=== PATIENT | female | born 1965 | race Caucasian/White ===

== ENCOUNTER 2016-09-19 16:46 | Emergency (ER) | payer BC ==
[~2016-09-19 16:46] MED LIST: ACET500CAP PO; ADVIL PO; ULTRAM50 PO; ZYRTEC ALLGY10 MG PO
[2016-09-19 17:06] LABS: BASOPHILS 0.3 %; BASOPHILS ABSOLUTE 0.03 10/3/uL (0.0-0.16); EOSINOPHILS 0.7 %; EOSINOPHILS ABSOLUTE 0.08 10/3/uL (0.0-0.53); HEMATOCRIT 43.2 % (36.0-48.0); HEMOGLOBIN 14.8 g/dL (12.0-16.0); IMMATURE GRANULOCYTES 0.7 %; IMMATURE GRANULOCYTES ABSOLUTE 0.08 10/3/uL (0.0-0.11); LYMPHOCYTES 13.7 %; LYMPHOCYTES ABSOLUTE 1.49 10/3/uL (0.67-4.30); MANUAL DIFF NO %; MEAN CORPUS HGB CONC 34.3 g/dL (32.0-36.0); MEAN CORPUSCULAR VOLUME 90.6 fL (80-100); MEAN PLATELET VOLUME 10.2 fL (9.2-13.0); MONOCYTES 4.5 %; MONOCYTES ABSOLUTE 0.49 10/3/uL (0.21-1.20); NEUTROPHILS 80.1 %; NEUTROPHILS ABSOLUTE 8.71 10/3/uL (2.02-8.40); PLATELET COUNT 269 10/3/uL (150-400); RBC DISTRIBUTION WIDTH 12.2 % (12.0-16.0); RED CELL COUNT 4.77 10/6/uL (4.0-5.6); WHITE BLOOD CELLS 10.9 10/3/uL (4.5-10.5)
[2016-09-19 17:15] LABS: INTERNATIONAL NORMAL RATI 1.1 UNITS (-); PROTIME (NOT ORD) 13.7 SEC (12.0-14.5)
[2016-09-19 17:16] LABS: PARTIAL THROMBO TIME 27.3 SEC (22.5-37.2)
[2016-09-19 17:21] LABS: BUN (BLOOD UREA NITROGEN) 13 MG/DL (6-23); CALCIUM, SERUM 8.6 MG/DL (8.5-10.4); CHEST PAIN PROFILE TAT 0 Hrs 19 Mins; CHLORIDE, SERUM 106 MMOL/L (96-112); CO2 (CARBON DIOXIDE) 26 MMOL/L (24-34); CREATININE 0.76 MG/DL (0.55-1.02); GFR AFRICAN AMERICAN 105 ML/MIN (>=60); GFR NON AFRICAN AMERICAN 90 ML/MIN (>=60); GLUCOSE, SERUM 103 MG/DL (60-99); POTASSIUM, SERUM 3.9 MMOL/L (3.5-5.3); SODIUM, SERUM 140 MMOL/L (135-148); TROPONIN I <0.02 NG/ML (<0.05)
[2016-12-30] MEDS ORDERED: CLARIT10 PO (11:56)
[2016-12-30] MEDS ORDERED: AMB5 PO (11:57)
[2016-12-30] MEDS ORDERED: VITAMIN D31000 UNIT PO (11:57)
[2016-12-30] MEDS ORDERED: MAG OXIDE250 MG PO (11:57)
[2016-12-30] MEDS ORDERED: NASACORTAQ NAS (11:58)
[2016-12-30] MEDS ORDERED: BEN25 PO (11:58)
[2016-12-30] MEDS ORDERED: MUCINEX600 MG PO (11:58)
[2016-12-30] MEDS ORDERED: PROAIR HFA INH (12:11)
[2017-01-16] MEDS ORDERED: ALLEGRA180 PO (14:13)
[2017-01-16] MEDS ORDERED: SINGULAIR1 PO (14:13)
[2017-01-16] MEDS ORDERED: PRILOSEC OTC20 MG PO (14:15)
== END 2016-09-20 02:24 | disposition home or self-care (01) ==
LOC: ER 16:46
PROVIDERS: Emergency Medicine
DX: R00.2 Palpitations (principal); J40 Bronchitis, not specified as acute or chronic; Z88.5 Allergy status to narcotic agent; Z79.899 Other long term (current) drug therapy
CPT/HCPCS: 71020; 80048; 83735; 84484; 85025; 85610; 85730; 93005; 99285

== ENCOUNTER 2016-10-14 22:30 | Emergency (ER) | payer BC ==
[2016-10-14 17:55] LABS: BASOPHILS 0.9 %; BASOPHILS ABSOLUTE 0.06 10/3/uL (0.0-0.16); EOSINOPHILS 2.8 %; EOSINOPHILS ABSOLUTE 0.19 10/3/uL (0.0-0.53); ER CBC TAT 0 Hrs 05 Mins; HEMATOCRIT 41.8 % (36.0-48.0); HEMOGLOBIN 14.3 g/dL (12.0-16.0); IMMATURE GRANULOCYTES 0.1 %; IMMATURE GRANULOCYTES ABSOLUTE 0.01 10/3/uL (0.0-0.11); LYMPHOCYTES 29.4 %; LYMPHOCYTES ABSOLUTE 1.98 10/3/uL (0.67-4.30); MEAN CORPUS HGB CONC 34.2 g/dL (32.0-36.0); MEAN CORPUSCULAR HEMOGLOB 31.1 pg (26.0-34.0); MEAN CORPUSCULAR VOLUME 90.9 fL (80-100); MEAN PLATELET VOLUME 10.3 fL (9.2-13.0); MONOCYTES 8.9 %; NEUTROPHILS 57.9 %; PLATELET COUNT 256 10/3/uL (150-400); RBC DISTRIBUTION WIDTH 12.5 % (12.0-16.0); WHITE BLOOD CELLS 6.7 10/3/uL (4.5-10.5)
[2016-10-14 17:56] LABS: MANUAL DIFF NO %
[2016-10-14 18:04] LABS: PARTIAL THROMBO TIME 28.3 SEC (22.5-37.2); PROTIME (NOT ORD) 13.1 SEC (12.0-14.5)
[2016-10-14 18:16] LABS: BUN (BLOOD UREA NITROGEN) 15 MG/DL (6-23); CALCIUM, SERUM 9.4 MG/DL (8.5-10.4); CHEST PAIN PROFILE TAT 0 Hrs 26 Mins; CHLORIDE, SERUM 105 MMOL/L (96-112); CO2 (CARBON DIOXIDE) 28 MMOL/L (24-34); CREATININE 0.74 MG/DL (0.55-1.02); GFR AFRICAN AMERICAN 108 ML/MIN (>=60); GFR NON AFRICAN AMERICAN 93 ML/MIN (>=60); GLUCOSE, SERUM 95 MG/DL (60-99); POTASSIUM, SERUM 3.9 MMOL/L (3.5-5.3); SODIUM, SERUM 141 MMOL/L (135-148); TROPONIN I <0.02 NG/ML (<0.05)
[2016-12-30] MEDS ORDERED: CLARIT10 PO (11:56)
[2016-12-30] MEDS ORDERED: AMB5 PO (11:57)
[2016-12-30] MEDS ORDERED: MAG OXIDE250 MG PO (11:57)
[2016-12-30] MEDS ORDERED: VITAMIN D31000 UNIT PO (11:57)
[2016-12-30] MEDS ORDERED: MUCINEX600 MG PO (11:58)
[2016-12-30] MEDS ORDERED: BEN25 PO (11:58)
[2016-12-30] MEDS ORDERED: NASACORTAQ NAS (11:58)
[2016-12-30] MEDS ORDERED: PROAIR HFA INH (12:11)
[2017-01-16] MEDS ORDERED: ALLEGRA180 PO (14:13)
[2017-01-16] MEDS ORDERED: SINGULAIR1 PO (14:13)
[2017-01-16] MEDS ORDERED: PRILOSEC OTC20 MG PO (14:15)
== END 2016-10-14 23:25 | disposition home or self-care (01) ==
LOC: ER 22:30
PROVIDERS: Emergency Medicine
DX: R00.2 Palpitations (principal); Z88.5 Allergy status to narcotic agent; Z88.8 Allergy status to other drugs, medicaments and biological substances; Z79.899 Other long term (current) drug therapy
CPT/HCPCS: 71020; 80048; 83735; 84484; 85025; 85610; 85730; 93005; 99285

== ENCOUNTER 2017-01-02 10:27 | Day surgery (SDC) | payer BC ==
--- NOTE | ~2017-01-02 | EGD ---
EGD REPORT [facility] [address] [address] NAME: LAURA MORGAN : [birth year] STATUS : REG [facility] PAT#: [id number] AGE: 51 ADM/REG DATE : 01/02/17 MR#: [id number] REPORT SERV DATE: 01/02/17 DICTATED BY: TONYA RODRIGUEZ DATE: 01/02/17 REPORT STATUS : Draft TRANSCRIBED BY: [facility] DATE: 01/02/17 Endoscopy Center Patient Name: Laura Morgan Date of : 1965 Attending MD: TONYA RODRIGUEZ MD Procedure Date No Time: 01/02/2017 Procedure: Upper GI endoscopy Indications: Epigastric abdominal pain, Dysphagia, Heartburn, Suspected esophageal reflux, Nausea Referring MD: JUVENTINO MARTÍNEZ Medicines: as per anesthesia Complications: No immediate complications. Procedure: Pre-Anesthesia Assessment: - ASA Grade Assessment: II - A patient with mild systemic disease. After obtaining informed consent, the endoscope was passed under direct vision. Throughout the procedure, the patient's blood pressure, pulse, and oxygen saturations were monitored continuously. The GIF [id number] [id number] was introduced through the mouth, and advanced to the third part of duodenum. The upper GI endoscopy was accomplished without difficulty. The patient tolerated the procedure. Findings: The examined esophagus was normal. The scope was withdrawn. Dilation was performed with a Bermudez dilator with no resistance at 46 Fr. The entire examined stomach was normal. The cardia and gastric fundus were normal on retroflexion. The examined duodenum was normal. Impression: - Normal esophagus. Dilated. - Normal stomach. - Normal examined duodenum. Recommendation: - Follow an antireflux regimen. - Continue present medications. Procedure Code(s): --- Professional --- 36315, Esophagogastroduodenoscopy, flexible, transoral; diagnostic, including collection of specimen(s) by brushing or washing, when performed (separate procedure) 22577, Dilation of esophagus, by unguided sound or bougie, single or multiple passes EGD REPORT [facility] [address] [facility] [place]. [address] NAME: LAURA MORGAN : [birth year] STATUS : REG [facility]#: [id number] AGE: 51 ADM/REG DATE : 01/02/17 MR#: [id number] REPORT SERV DATE: 01/02/17 DICTATED BY: TONYA RODRIGUEZ. DATE: 01/02/17 REPORT STATUS : Draft TRANSCRIBED BY: [employer] DATE: 01/02/17 Diagnosis Code(s): --- Professional --- R10.13, Epigastric pain R13.10, Dysphagia, unspecified R12, Heartburn R11.0, Nausea CPT copyright 2013 [employer]. All rights reserved. The codes documented in this report are preliminary and upon folder hand review may be revised to meet current compliance requirements. TONYA RODRIGUEZ MD 01/02/2017 1:35 PM This report has been signed electronically. Number of Addenda: 0 Note Initiated On: 01/02/2017 1:13 PM Scope Withdrawal Time 0 hours 0 minutes 0 seconds [address] [facility] [place] [address]
--- NOTE | ~2017-01-02 | EGD ---
EGD REPORT [facility] [address] [address] NAME: LAURA MORGAN : [birth year] STATUS : REG [facility]#: [id number] AGE: 51 ADM/REG DATE : 01/02/17 MR#: [id number] REPORT SERV DATE: 01/02/17 DICTATED BY: TONYA RODRIGUEZ DATE: 01/02/17 REPORT STATUS : Draft TRANSCRIBED BY: [facility] DATE: 01/02/17 Endoscopy Center Patient Name: Laura Morgan Date of : 1965 Attending MD: TONYA RODRIGUEZ MD Procedure Date No Time: 01/02/2017 Procedure: Colonoscopy Indications: Screening for colorectal malignant neoplasm Referring MD: JUVENTINO MARTÍNEZ Medicines: as per anesthesia Complications: No immediate complications. Procedure: Pre-Anesthesia Assessment: - ASA Grade Assessment: II - A patient with mild systemic disease. After I obtained informed consent, the scope was passed under direct vision. Throughout the procedure, the patient's blood pressure, pulse, and oxygen saturations were monitored continuously. The PCF [id number] was introduced through the anus and advanced to the cecum, identified by appendiceal orifice and ileocecal valve. The colonoscopy was performed without difficulty. The patient tolerated the procedure. The quality of the bowel preparation was adequate to identify polyps. Findings: The perianal and digital rectal examinations were normal. Internal hemorrhoids were found during endoscopy and were mild. Impression: - Internal hemorrhoids. Recommendation: - Repeat colonoscopy in 10 years for surveillance. Procedure Code(s): --- Professional --- 29922, Colonoscopy, flexible, proximal to splenic flexure; diagnostic, with or without collection of specimen(s) by brushing or washing, with or without colon decompression (separate procedure) Diagnosis Code(s): --- Professional --- K64.8, Other hemorrhoids Z12.11, Encounter for screening for malignant neoplasm of colon CPT copyright 2013 [employer]. All rights reserved. EGD REPORT [facility] [address] [place]. [address] NAME: LAURA MORGAN : [birth year] STATUS : REG [facility] PAT#: [id number] AGE: 51 ADM/REG DATE : 01/02/17 MR#: [id number] REPORT SERV DATE: 01/02/17 DICTATED BY: TONYA RODRIGUEZ. DATE: 01/02/17 REPORT STATUS : Draft TRANSCRIBED BY: [employer] DATE: 01/02/17 The codes documented in this report are preliminary and upon stable cleaner review may be revised to meet current compliance requirements. TONYA RODRIGUEZ MD 01/02/2017 1:52 PM This report has been signed electronically. Number of Addenda: 0 Note Initiated On: 01/02/2017 1:14 PM Scope Withdrawal Time 0 hours 6 minutes 2 seconds [address] [facility] [place] [address]
[~2017-01-02 10:27] MED LIST changes: +AMB5 PO; +BEN25 PO; +CLARIT10 PO; +MAG OXIDE250 MG PO; +MUCINEX600 MG PO; +NASACORTAQ NAS; +PROAIR HFA INH; +VITAMIN D31000 UNIT PO
[2017-01-16] MEDS ORDERED: ALLEGRA180 PO (14:13)
[2017-01-16] MEDS ORDERED: SINGULAIR1 PO (14:13)
[2017-01-16] MEDS ORDERED: PRILOSEC OTC20 MG PO (14:15)
== END 2017-01-02 23:59 | disposition home or self-care (01) ==
LOC: DMU 10:27
PROVIDERS: Internal Medicine Gastroenterology
PROC: 0DJD8ZZ Inspection of Lower Intestinal Tract, Via Natural or Artificial Opening Endoscopic (ICD-10-PCS; principal; 2017-01-02 12:00)
PROC: 0D757ZZ Dilation of Esophagus, Via Natural or Artificial Opening (ICD-10-PCS; 2017-01-02 12:00)
PROC: 0DJ08ZZ Inspection of Upper Intestinal Tract, Via Natural or Artificial Opening Endoscopic (ICD-10-PCS; 2017-01-02 12:00)
DX: Z12.11 Encounter for screening for malignant neoplasm of colon (principal); K64.8 Other hemorrhoids; K57.90 Diverticulosis of intestine, part unspecified, without perforation or abscess without bleeding; M10.9 Gout, unspecified; M19.90 Unspecified osteoarthritis, unspecified site; Z88.5 Allergy status to narcotic agent; Z79.899 Other long term (current) drug therapy; Z98.890 Other specified postprocedural states